=== PATIENT | female | born 1955 | race Hispanic/Latino ===

== ENCOUNTER 2019-07-09 13:29 | Outpatient (CLI) | payer BC ==
--- NOTE | 2019-07-09 15:38 | Mammography Report ---
RIGHT DIGITAL DIAGNOSTIC MAMMOGRAM CLINICAL: For clip placement after stereotactic needle biopsy for calcifications. COMPARISON: Recent [facility] right mammogram. FINDINGS: A new lower outer biopsy clip is identified at the site of stereotactic biopsy and it corre lates with the previous group of suspicious calcifications. A few residual calcifications remaining a t the site. IMPRESSION: Successful stereotactic biopsy with concordant clip deployment. Signer Name: Dwight Cox MD Signed: 07/09/2019 3:34 PM Workstation Name: [id number]
--- NOTE | 2019-07-10 09:48 | Mammography Report ---
STEREOTACTIC NEEDLE BIOPSY WITH CLIP PLACEMENT RIGHT BREAST INDICATION: Calcifications. COMPARISON: Recent mammograms from [facility] FINDINGS: I discussed the procedure with the patient and informed consent was obtained. The patient was placed prone on the stereotactic biopsy table. A timeout was called and the skin was cleansed with betadine. The suspicious calcifications were targeted with stereotactic guidance and appeared to be very superf icial near the skin. However, they did not appear to be within the skin. Using stereotactic guidance, sterile technique and 1% lidocaine for skin anesthesia and 2% lidocaine with epinephrine for deep an esthesia, 8-gauge Mammotome vacuum-assisted biopsy was performed from a lateral approach. Samples wer e obtained around the clock face and desk representative calcifications were identified on a specimen radi ograph. A localizer clip was placed at the biopsy site and the probe was removed. Hemostasis was achi eved with pressure to the site. A sterile dressing and an Mani bandage wrap were applied. A post procedure mammogram demonstrated removal of at least some of the calcifications and concordant location of the biopsy clip. The patient tolerated the procedure well and there were no apparent com plications. She was given instructions for wound care and follow-up and left the department in good c ondition with a cold pack applied to the biopsy site. IMPRESSION: 1. Successful uncomplicated right stereotactic breast biopsy of calcifications.. Signer Name: Dwight Cox MD Signed: 07/10/2019 9:43 AM Workstation Name: [id number]
== END 2019-07-09 13:30 | disposition home or self-care (01) ==
LOC: SPVWC 13:29
PROVIDERS: ATTEND Surgery
DX: R92.1 Mammographic calcification found on diagnostic imaging of breast (principal); R92.8 Other abnormal and inconclusive findings on diagnostic imaging of breast
CPT/HCPCS: 19081; 77065; 88305; 88341; 88342; A4648

== ENCOUNTER 2019-07-23 08:18 | Outpatient (CLI) | payer BC ==
--- NOTE | 2019-07-24 11:11 | Magnetic Resonance Report ---
BILATERAL BREAST MR WITHOUT AND WITH GADOLINIUM INDICATION: Newly diagnosed right breast cancer. Status post right stereotactic breast biopsy on 07/09 calcifications. Pathology revealed ductal carcinoma in situ, intermediate grade, ER/CT + (90-10 0%) [address] CT negative. COMPARISONS: 07/09/2019 right mammogram TECHNIQUE: Axial 1.0 mm T1 without, axial high-resolution 2.0 mm T2 and axial 1.0 mm dynamic vibrant high-resolution postcontrast T1 fat saturation sequences on a 1.5 Maricruz magnet. The examination was p erformed with an 8-channel dedicated [place]in[place] breast coil. Post-processing with CAD and subtraction was performed on an [employer] workstation. 12.0 cc of MultiHance was injected without incident for the c ontrast portion of the exam. Consent was obtained prior to the administration of the contrast. FINDINGS: RIGHT BREAST: Minimal background parenchymal enhancement. A postbiopsy hematoma at the site of the kn own cancer in the lower outer quadrant 9 cm from the nipple measures 14.0 x 10.0 x 6.0 mm. Mild benig n enhancement at the biopsy site and no mass or suspicious enhancement in the vicinity of the biopsy site. A 15 mm long prominent dilated duct in the lower outer quadrant approximately 5 cm from the nip ple correlates with additional suspicious calcifications (the most anterior group) on the mammogram. There is mild linear non mass enhancement associated with this duct. No other suspicious finding in t he right breast. No suspicious lymph nodes. LEFT BREAST: Minimal background parenchymal enhancement. No mass or suspicious enhancement. No suspic ious lymph nodes. IMPRESSION: 1. Known right breast cancer (DCIS) in the lower outer quadrant 9 cm from the nipple. 2. A second suspicious lesion (non mass enhancement) in the lower outer quadrant 5 cm from the nipple correlates with the most anterior group of calcifications on the mammogram. Recommend stereotactic b iopsy of this group of calcifications to better determine extent of disease. There are 2 additional g roups of suspicious calcifications on the mammogram which lie between the known cancer and this most anterior group of calcifications. However, there are no MRI findings associated with this group. 3. Negative left breast. 4. No suspicious lymph nodes. BI-RADS Category 6: Known Cancer Signer Name: Dwight Cox MD Signed: 07/24/2019 11:07 AM Workstation Name: [id number]
== END 2019-07-23 08:19 | disposition home or self-care (01) ==
LOC: SPVIMAG 08:18
PROVIDERS: ATTEND Surgery
DX: C50.411 Malignant neoplasm of upper-outer quadrant of right female breast (principal)
CPT/HCPCS: A9577; C8908; 77049

== ENCOUNTER 2019-07-30 09:30 | Outpatient (CLI) | payer BC ==
--- NOTE | 2019-07-30 11:40 | Mammography Report ---
DIGITAL DIAGNOSTIC MAMMOGRAM WITH CAD, 07/30/2019 INDICATION: Immediately status post stereotactic biopsy for clip placement. Known DCIS diagnosed by s tereotactic biopsy 07/09/2019. TECHNIQUE: Digital right mammographic imaging was performed. This examination was interpreted with the benefit of Computer-aided Detection analysis. COMPARISON: 07/09/2019 mammogram and 07/23/2019 MRI FINDINGS: Breast Density: The breast is heterogeneously dense, which may obscure small masses. A second biopsy clip is now identified approximately 5 cm anterior to the known cancer. It is approxi mately 4 cm from the nipple. This biopsy clip is concordant with the MRI finding and the group of april cifications identified on the mammogram. IMPRESSION: Concordant clip placement after second stereotactic biopsy of the right breast. Follow up recommendation: No recall. BI-RADS Category 6: Known Biopsy-Proven Malignancy. A "normal" or negative report should not discourage follow up or biopsy of a clinically significant f inding. A written summary of these findings will be mailed to the patient. The patient will be entered into a mammography reporting system which will generate a reminder letter for the patient's next appointmen t at the appropriate interval. According to the [employer], yearly mammograms are recommended starting at age 40 and continuing as long as a woman is in good health. Breast MRI is recommended for women with an lay roximately 20-25% or greater lifetime risk of breast cancer, including women with a strong family his tory of breast or ovarian cancer and women who have been treated for Hodgkin's disease. Signer Name: Dwight Cox MD Signed: 07/30/2019 11:36 AM Workstation Name: [id number]
--- NOTE | 2019-07-30 13:24 | Mammography Report ---
STEREOTACTIC NEEDLE BIOPSY WITH CLIP PLACEMENT RIGHT BREAST INDICATION: RIGHT BREAST CANCER. COMPARISON: 07/09/2019 mammogram and 07/23/2019 MRI FINDINGS: The patient was placed prone on the stereotactic biopsy table. A timeout was called and the skin was cleansed with betadine. Using stereotactic guidance, sterile technique and 1% lidocaine for skin anesthesia and 2% lidocaine with epinephrine for deep anesthesia, 8-gauge Mammotome vacuum-assisted biopsy was performed from a C C from below approach to sample a group of anterior lateral calcifications. The calcifications correl ate with a second suspicious lesion identified on recent MRI. Samples were obtained around the clock face and paper sales representative calcifications were identified in 5 cores on a specimen radiograph. A localiz er clip was deployed at the biopsy site and the probe was removed. Hemostasis was achieved with press ure to the site. A sterile dressing and an Mani bandage wrap were applied. A post procedure mammogram demonstrated removal of at least some of the calcifications and concordant location of the biopsy clip. The patient tolerated the procedure well and there were no apparent com plications. She left the department in good condition with a cold pack applied to the biopsy site and she was given instructions for wound care and follow-up. IMPRESSION: 1. Successful uncomplicated right stereotactic biopsy.. Signer Name: Dwight Cox MD Signed: 07/30/2019 1:20 PM Workstation Name: [id number]
== END 2019-07-30 09:31 | disposition home or self-care (01) ==
LOC: SPVWC 09:30
PROVIDERS: ATTEND Surgery
DX: C50.911 Malignant neoplasm of unspecified site of right female breast (principal); R92.8 Other abnormal and inconclusive findings on diagnostic imaging of breast
CPT/HCPCS: 19081; 77065; 88305; 88342; A4648

== ENCOUNTER 2020-06-09 08:36 | Outpatient (CLI) | payer BC | END 2020-06-09 08:37 | disposition home or self-care (01) | LOC: SPVWC 08:36 | PROVIDERS: ATTEND Surgery | DX: Z12.31 Encounter for screening mammogram for malignant neoplasm of breast (principal) ==

== ENCOUNTER 2020-07-21 10:53 | Outpatient (CLI) | payer BC ==
--- NOTE | 2020-07-21 12:14 | Ultrasound Report ---
ULTRASOUND BREAST LEFT LIMITED, 07/21/2020 CLINICAL INFORMATION / INDICATION: Abnormal screening mammogram. TECHNIQUE: Targeted ultrasound evaluation was performed of the area of interest. COMPARISON: Screening mammography 06/09/2020, 05/27/2019, 05/24/2018 (prior symptoms recently become av ailable, since interpretation of recent screening mammogram) FINDINGS: Examination of the retroareolar area shows a minimal benign simple cyst. In the medial retroareolar a prema at 9:00 just medial to the nipple a superficial 7 mm wider than tall hypoechoic area seen with mi ld through transmission and without shadowing though with a small amount of vascularity at the margin . Borders are mildly irregular. IMPRESSION: A solid nodule with mildly indeterminate features is seen in the area of nodularity on ma mmogram. Mammographic comparison with the just recently available prior examinations shows an increas e in nodularity medially. Lesion has a low suspicion for malignancy. Follow up recommendation: Recommend attempt at ultrasound-guided biopsy of the medial nodule. Lena holly I believe this could be attempted, targeting the posterior aspect of the lesion, without signifi cant risk of skin damage. BI-RADS Category 4: Suspicious for Malignancy. A normal or "negative" report should not preclude biopsy or follow-up of a clinically suspicious find ing. Signer Name: Jeremy Hebert MD Signed: 07/21/2020 12:10 PM Workstation Name: [id number]
== END 2020-07-21 10:54 | disposition home or self-care (01) ==
LOC: SPVWC 10:53
PROVIDERS: ATTEND Surgery
DX: N63.20 Unspecified lump in the left breast, unspecified quadrant (principal); N60.02 Solitary cyst of left breast

== ENCOUNTER 2020-07-29 10:09 | Outpatient (CLI) | payer BC ==
--- NOTE | 2020-07-29 12:23 | Mammography Report ---
ULTRASOUND GUIDED LEFT BREAST BIOPSY, 07/29/2020 LEFT DIAGNOSTIC MAMMOGRAM CLINICAL INFORMATION / INDICATION: ABNORMAL MAMMOGRAM. Tiny essentially subareolar nodule, here for f ollow-up biopsy COMPARISON: Ultrasound from 07/21/2020 and left-sided mammogram from 06/09/2020 PROCEDURE: Risks, benefits, and indications to the procedure were discussed with the patient in detail, includin g bleeding, infection, hematoma formation, and inadequate tissue sampling. The patient agreed to proc eed with both verbal and written consent. A timeout procedure was performed with two patient identifi ers. The breast was prepped and draped in the usual sterile fashion. Lidocaine 1% was used for local anest hesia. Under direct ultrasound guidance, one 12-gauge vacuum assist core sample was obtained of the l eft breast nodule before the nodule became seemingly difficult to re-localize. A biopsy marker was t hen placed. Biopsy device was removed and hemostasis achieved with manual pressure. A sterile dressin g was applied to the skin. The patient tolerated the procedure without difficulty. No complications were encountered. Postbiopsy instructions were discussed with the patient and given in writing. Specimens were sent to pathology. The patient was then sent for a confirmatory mammogram to demonstrate adequate clip positioning in th e area in question. IMPRESSION: 1. Technically successful ultrasound guided left subareolar breast nodule biopsy. The nodule was very difficult to visualize begin the exam and became even more difficult to visualize after the first bi opsy and lidocaine injection, therefore a single biopsy was obtained. I will follow-up on the patholo gy results and if needed develop a new plan for biopsy. I also discussed this with the patient after the exam. 2. Satisfactory positioning of the biopsy clip on the post procedure mammogram. Biopsy results are pending and will be reported in an addendum. Signer Name: Bryan Delacruz MD Signed: 07/29/2020 12:17 PM Workstation Name: [id number]
== END 2020-07-29 10:10 | disposition home or self-care (01) ==
LOC: US 10:09
PROVIDERS: ATTEND Surgery
DX: N63.22 Unspecified lump in the left breast, upper inner quadrant (principal); N64.89 Other specified disorders of breast; G47.30 Sleep apnea, unspecified; E78.00 Pure hypercholesterolemia, unspecified; Z88.8 Allergy status to other drugs, medicaments and biological substances; Z79.899 Other long term (current) drug therapy; Z79.82 Long term (current) use of aspirin; Z85.3 Personal history of malignant neoplasm of breast; Z98.891 History of uterine scar from previous surgery; Z80.3 Family history of malignant neoplasm of breast; Z80.0 Family history of malignant neoplasm of digestive organs; Z80.42 Family history of malignant neoplasm of prostate; Z98.890 Other specified postprocedural states; Z80.8 Family history of malignant neoplasm of other organs or systems
CPT/HCPCS: 88305

== ENCOUNTER 2020-09-09 06:20 | Day surgery (SDC) | payer BC ==
[~2020-09-09 06:20] MED LIST: BUPIVACAINE/PF (0.25%) 2.5 MG/ML 30 ML VIAL INFILTRATI ONE; LIDOCAINE (1%) 10 MG/1 ML VIAL 20 ML MDV INFILTRATI ONE; WATER FOR IRRIG STERILE 1,500 ML BOTTLE IR ONE; ceFAZolin/Water 2 GM/20 ML 2 GM/20 ML SYRINGE IV NR
[2020-09-09] MEDS ORDERED: BUPIVACAINE/PF (0.25%) 2.5 MG/ML 30 ML VIAL INFILTRATI ONE ×2 (07:29→11:12)
[2020-09-09] MEDS ORDERED: LIDOCAINE (1%) 10 MG/1 ML VIAL 20 ML MDV ONE ×2 (07:29→08:03)
--- NOTE | 2020-09-09 07:41 | Anesthesia Day of Surgery ---
Anesthesia Day of Surgery - Day of Surgery Patient Examined: Yes Patient H&P Reviewed: Yes Patient is NPO: Yes Cardiac Clearance: Yes (PCP)
--- NOTE | 2020-09-09 07:42 | Anesthesia Consultation ---
Anesthesia Consult and Med Hx Date of service: 09/09/20 - Airway Anesthetic Teeth Evaluation: Good (Missing) ROM Head & Neck: Adequate Mental/Hyoid Distance: Adequate Mallampati Class: Class II Intubation Access Assessment: Good - Pre-Operative Health Status ASA Pre-Surgery Classification: ASA3 Proposed Anesthetic Plan: General - Pulmonary Hx Smoking: No Hx Asthma: Yes ( CHILD/TEEN-LAST INHALER USE 2007) Hx Respiratory Symptoms: No (+2FS) COPD: No Hx Pneumonia: No Hx Sleep Apnea: Yes (DX SLEEP APNEA WITH CPAP USE) - Cardiovascular System Hx Hypertension: No Hx Heart Attack/AMI: No Hx Pacemaker: No Hx Internal Defibrillator: No Hx Heart Murmur: Yes (CAUSES NO PROBLEMS) - Central Nervous System Hx Seizures: No Hx Back Pain: Yes (OCC.) Hx Psychiatric Problems: No - Gastrointestinal Hx Gastroesophageal Reflux Disease: Yes (Rare) - Endocrine Hx Renal Disease: No Hx End Stage Renal Disease: No Hx Cirrhosis: No Hx Liver Disease: No Hx Non-Insulin Dependent Diabetes: No - Hematic Hx Anemia: No Hx Sickle Cell Disease: No - Other Systems Hx Alcohol Use: No Hx Substance Use: No Hx Cancer: Yes Hx Obesity: No - Additional Comments Anesthesia Medical History Comments: +PCP Med clearance
[2020-09-09] MEDS ORDERED: HYDROmorphone 1 MG/1 ML INJ IV PRN ×2 (08:00)
[2020-09-09] MEDS ORDERED: LACTATED RINGERS 1,000 ML IV SCH (08:00)
[2020-09-09] MEDS ORDERED: ONDANSETRON 4 MG/2 ML INJ IV PRN (08:00)
[2020-09-09] MEDS ORDERED: MIDAZOLAM 2 MG/2 ML INJ IV NR (08:00)
--- NOTE | 2020-09-09 09:24 | Ultrasound Report ---
MAMMOGRAPHIC GUIDED LEFT BREAST NEEDLE LOCALIZATION, 09/09/2020 LIMITED LEFT BREAST ULTRASOUND CLINICAL INFORMATION / INDICATION: LT BREAST MASS. The patient has a subareolar breast nodule on the left at the 9:00 position. Previous ultrasound-guided biopsy showed normal breast tissue which is dis cordant. Patient presents today for needle localization and subsequent resection of the nodule. COMPARISON: Left breast mammograms from 06/09/2020 and 07/29/2020, as well as left breast ultrasound fro m 07/21/2020 PROCEDURE: Risks, benefits and indications to the procedure were discussed with the patient. The patient agreed to proceed with both verbal and written consent. A timeout procedure was performed with 2 patient kim ntifiers. Ultrasound guidance was first utilized for the wire localization; however, the nodule was not well id entified in this patient with otherwise heterogeneously dense breast tissue. The patient was then mov ed to conventional mammographic localization. The breast was prepped in the usual sterile fashion. Approximately 5cc of Lidocaine was used for loca l anesthesia. Under direct digital mammographic guidance, a localization wire was placed in satisfact ory position with wire positioned slightly anterior to the area of interest. The target area was ninfa ed with a wax pencil and sent with the patient to aid in intraoperative guidance. Post-procedure mamm ogram confirms satisfactory positioning of the localization wire. The wire was secured to the skin wi th a sterile dressing. The patient tolerated procedure without difficulty. No complications were encountered. IMPRESSION: 1. Satisfactory mammographic guided wire localization. 2. Limited left breast ultrasound did not adequately demonstrate the 9:00 position subareolar nodule. Signer Name: Bryan Delacruz MD Signed: 09/09/2020 9:19 AM Workstation Name: [id number]
[2020-09-09] MEDS ORDERED: HYDROmorphone 1 MG/1 ML INJ ONE (09:55)
[2020-09-09] MEDS ORDERED: propofoL 200 MG/20 ML VIAL IV ONE (09:55)
[2020-09-09] MEDS ORDERED: dexAMETHasone 20 MG/5 ML VIAL ONE (09:59)
[2020-09-09] MEDS ORDERED: GLYCOPYRROLATE 0.4 MG/2 ML INJ ONE (09:59)
[2020-09-09] MEDS ORDERED: ONDANSETRON 4 MG/2 ML INJ ONE (09:59)
[2020-09-09] MEDS ORDERED: LIDOCAINE MPF (2%) 20 MG/1 ML VIAL 5 ML ONE (09:59)
[2020-09-09] MEDS ORDERED: PHENYLEPHRINE/NS 1,000 MCG/10 ML SYRINGE (OR USE) IV ONE ×2 (09:59→11:30)
[2020-09-09] MEDS ORDERED: BACITRACIN ZINC OINT 28.4 GM TP ONE ×2 (11:08→11:21)
[2020-09-09] MEDS ORDERED: LIDOCAINE (1%) 10 MG/1 ML VIAL 20 ML MDV INFILTRATI ONE (11:12)
[2020-09-09] MEDS ORDERED: WATER FOR IRRIG STERILE 1,500 ML BOTTLE IR ONE (11:14)
--- NOTE | 2020-09-09 11:27 | Short Stay Summary ---
Short Stay Documentation Date of service: 09/09/20 - History H&P: obtained from office - Allergies and Medications Current Medications: Allergies banana Allergy (Verified 10/08/19 11:45) Hives grass pollen Allergy (Verified 10/08/19 11:46) SEVER NASAL CONGESTION mold Allergy (Verified 10/08/19 11:46) SEVERE NASAL CONGESTION sulfamethoxazole [From Bactrim] Allergy (Verified 10/08/19 11:45) Nausea trimethoprim [From Bactrim] Allergy (Verified 10/08/19 11:45) Nausea Home Medications Medication Instructions Recorded Confirmed Last Taken Type Aspirin [Adult Aspirin] 81 mg PO DAILY 10/08/19 09/09/20 1 Week Ago History ~09/02/20 Bimatoprost [Lumigan 0.01%] 1 drop OP QPM 10/08/19 09/09/20 09/08/20 History Letrozole (Nf) [Femara (Nf)] 2.5 mg PO QDAY 10/08/19 09/09/20 1 Week Ago History ~09/02/20 Ubidecarenone [Coq-10] 100 mg PO DAILY 10/08/19 09/09/20 1 Week Ago History ~09/02/20 Valacyclovir HCl [Valacyclovir] 500 mg PO DAILY 10/08/19 09/09/20 1 Week Ago History ~09/02/20 Ascorbic Acid [Vitamin C] 500 mg PO DAILY 09/01/20 09/01/20 1 Week Ago History ~09/02/[address] Choi 2 cap PO BID 09/01/20 09/09/20 1 Week Ago History ~09/02/20 Ibuprofen [Motrin 800 MG tab] 800 mg PO Q8HR PRN #10 tablet 09/09/20 Unknown Rx Active Medications Hydromorphone HCl (Hydromorphone 1 Mg/1 Ml Inj) 0.25 mg IV Q10MIN PRN PRN Reason: Pain, Moderate (4-6) Stop: 09/09/20 17:00 Hydromorphone HCl (Hydromorphone 1 Mg/1 Ml Inj) 0.5 mg IV Q10MIN PRN PRN Reason: Pain , Severe (7-10) Stop: 09/09/20 21:00 Cefazolin Sodium (Ancef/Sterile Water 2 Gm/20 Ml) 2 gm in 20 mls @ 80 mls/hr IV PREOP NR; Protocol Stop: 09/09/20 23:01 Lactated Ringer's (Lactated Ringers) 1,000 mls @ 125 mls/hr IV DIRECT KYLAH Last Admin: 09/09/20 08:55 Dose: 125 mls/hr Documented by: Midazolam HCl (Midazolam 2 Mg/2 Ml Inj) 2 mg IV PREOP NR Stop: 09/09/20 23:59 Last Admin: 09/09/20 08:55 Dose: 2 mg Documented by: Ondansetron HCl (Ondansetron 4 Mg/2 Ml Inj) 4 mg IV ONCE PRN PRN Reason: Nausea And Vomiting Stop: 09/09/20 17:00 - Brief post op/procedure progress note Date of procedure: 09/09/20 Pre-op diagnosis: Left breast mass upper inner quadrant Post-op diagnosis: same Procedure: Left needle localization excisional biopsy Anesthesia: GETA Findings: Left wire and clip present Surgeon: ANGELINE OLMEDO Estimated blood loss: minimal Pathology: list Specimen disposition: to lab Condition: stable - Disposition Condition at discharge: Good Disposition: DC-01 TO HOME OR SELFCARE Short Stay Discharge Plan Activity: other (no heavy lifting) Diet: regular Wound: keep clean and dry (may shower in 48 hours; no baths; wear breast binder) Follow up with: ANGELINE OLMEDO MD [Staff Physician] - 7 Days Prescriptions: Ibuprofen [Motrin 800 MG tab] 800 mg PO Q8HR PRN #10 tablet PRN Reason: Pain , Severe (7-10)
--- NOTE | 2020-09-09 11:39 | Operative Report ---
Operative Report Operative Report: Operative Report: September 09, 2020 Preoperative diagnosis: Left breast retroareolar mass/of the upper inner quadrant Postoperative diagnosis: Same Procedure: Left breast mass needle localization excisional biopsy of the upper inner quadrant Surgeon: Phuong Lawson MD Fisher Trot Line: Zahida Patel MD Anesthesia: General Findings: Left wire and clip present within radiograph specimen Complications: None EBL: Minimal (less than 25 cc) Disposition: PACU in good condition Indications for operative procedure: This is a 65 year old lady with a personal history of Stage I right breast cancer and recent abnormal left breast mammogram/ultrasound findings of a retroareolar mass of upper inner quadrant/retroareolar. Left breast ultrasound guided needle core biopsy performed with findings of benign breast tissue and recommendations to proceed with left breast mass excisional biopsy to rule out malignancy given discordant findings. She wished to proceed with the above procedure. Patient with prior right mastectomy with implant present and left breast reduction mammoplasty. Procedure in detail: The patient was taken to radiology for wire placement for localization known area of concern. Patient was then taken to the operating room and was laid supine. Gen. anesthesia was administered. Left breast and axilla were prepped and draped in the normal sterile operative fashion. The wire was identified around 9:00 position SA and superficially placed. Timeout was performed. Ultrasound used as well to localize area of excision. Attention was then taken towards the left breast. A 9:00 periareolar breast incision was made at prior breast incision with a 15 blade knife and dissection taken down to subcutaneous tissues. First began raising of the anterior flap with removal of the wire from the skin with careful dissection performed to ensure maintain vascuarlity of the nipple-patient with prior reduction mammoplasty, dissection was taken down posteriorly past the wire and upon dissection the wire broke; then proceeded with raising of the superior flap, inferior flap and medial flap with all flaps taken down posteriorly past the end of the wire. The breast area of concern was localized with the end of the wire within the area of concern that was adjacent to the clip. The breast area of concern was appropriately removed posteriorly with the aid of the Bovie cautery. Specimen was marked and then sent to pathology and radiology; radiograph specimen with end of wire present. Then proceeded with more lateral dissection and the clip was identified adjcent and tissue surrounding the clip and clip were removed as well; radiograph specimen with clip present. Breast cavity was irrigated and hemostasis was obtained. Breast cavity was anesthesized wtih 1% lidocained mixed with quarter percent marcaine without epinephrine. Then proceeded with complex closure. The posterior deep breast tissues were approximated and closed using interrupted 3-0 Vicryl. The subcutaneous tissues were approximated and closed using interrupted 3-0 Vicryl followed by closing of the skin with a running 4-0 Monocryl and skin affix. The patient tolerated surgery very well and she was awaken from anesthesia without any complication and transported to PACU in good condition.
--- NOTE | 2020-09-09 11:39 | Mammography Report ---
MAMMOGRAPHY WIRE LOCALIZATION SPECIMEN OF THE BREAST INDICATION: Patient had wire localization earlier today, current exam is to evaluate specimen. COMPARISON: Earlier today FINDINGS: SPECIMEN RADIOGRAPH: The previously localized target area is present in its entirety in the submitted specimen. The localization wire is present. There is a second piece of tissue which includes the bio psy clip. IMPRESSION: Radiographic evidence of satisfactory excision of the target area. Signer Name: Bryan Delacruz MD Signed: 09/09/2020 11:34 AM Workstation Name: [id number]
[2020-09-09 12:55] VITALS: BP 132/70
--- NOTE | 2020-09-09 17:21 | Post Anesthesia Evaluation ---
- Post Anesthesia Evaluation Patient Participated: Yes Airway Patent: Yes Stable Respiratory Function: Yes Nausea/Vomiting: No Temp > 96.8F: Yes Pain Manageable: Yes Adequeate Hydration: Yes Anesthesia Complications: No Block Receding Appropriately: Not Applicable Patient on Ventilator: No
== END 2020-09-09 13:35 | disposition home or self-care (01) ==
LOC: OR 06:20
PROVIDERS: ATTEND Surgery
DX: N63.22 Unspecified lump in the left breast, upper inner quadrant (principal); Z20.822 Contact with and (suspected) exposure to COVID-19; E78.00 Pure hypercholesterolemia, unspecified; G47.30 Sleep apnea, unspecified; K21.9 Gastro-esophageal reflux disease without esophagitis; Z85.3 Personal history of malignant neoplasm of breast; Z90.11 Acquired absence of right breast and nipple; Z88.8 Allergy status to other drugs, medicaments and biological substances; Z79.899 Other long term (current) drug therapy; Z79.82 Long term (current) use of aspirin; Z98.891 History of uterine scar from previous surgery; Z98.890 Other specified postprocedural states; Z87.440 Personal history of urinary (tract) infections; Z80.0 Family history of malignant neoplasm of digestive organs; Z80.3 Family history of malignant neoplasm of breast; Z80.8 Family history of malignant neoplasm of other organs or systems
CPT/HCPCS: 19125; 19281; 76098; 76642; 88307; A4648; J0690; J1100; J1170; J2250; J2370; J2405; J2704; J7120; U0003

== ENCOUNTER 2021-02-23 09:15 | Outpatient (CLI) | payer BC ==
--- NOTE | 2021-02-23 10:56 | Mammography Report ---
DIGITAL DIAGNOSTIC MAMMOGRAM WITH CAD , 02/23/2021 CLINICAL INFORMATION / INDICATION: The patient has a personal history of right breast cancer treated with mastectomy. She has also undergone surgical excision of left breast mass and has also had left b reast reduction. She reports no new breast symptoms. This is a short-term follow-up evaluation. TECHNIQUE: Digital left mammographic imaging was performed. This examination was interpreted with the benefit of Computer-aided Detection analysis. COMPARISON: Left breast ultrasound, 07/21/2020. Left breast ultrasound, 09/09/2020. Left mammogram, 2020 and 07/29/2020 FINDINGS: Breast Density: The breasts are extremely dense, which lowers the sensitivity of mammography. No dominant mass, suspicious calcifications or architectural distortion in the left breast. Previously seen density with associated biopsy clip has been removed. Scattered coarse calcifications are again noted throughout the breast and are unchanged. Post reduction changes are also noted. IMPRESSION: No mammographic evidence of malignancy. Stable postsurgical appearance of the left breast . Follow up recommendation: Routine yearly BI-RADS Category 2: Benign. A "normal" or negative report should not discourage follow up or biopsy of a clinically significant f inding. A written summary of these findings will be mailed to the patient. The patient will be entered into a mammography reporting system which will generate a reminder letter for the patient's next appointmen t at the appropriate interval. According to the [employer], yearly mammograms are recommended starting at age 40 and continuing as long as a woman is in good health. Breast MRI is recommended for women with an lay roximately 20-25% or greater lifetime risk of breast cancer, including women with a strong family his tory of breast or ovarian cancer and women who have been treated for Hodgkin's disease. Signer Name: Paige Del Toro MD Signed: 02/23/2021 10:52 AM Workstation Name: [id number]
== END 2021-02-23 09:16 | disposition home or self-care (01) ==
LOC: SPVWC 09:15
PROVIDERS: ATTEND Internal Medicine Hematology
DX: C50.919 Malignant neoplasm of unspecified site of unspecified female breast (principal); D05.10 Intraductal carcinoma in situ of unspecified breast; N63.20 Unspecified lump in the left breast, unspecified quadrant; R23.2 Flushing; R92.1 Mammographic calcification found on diagnostic imaging of breast; Z85.3 Personal history of malignant neoplasm of breast